=== PATIENT | male | born 1935 | race Caucasian/White ===

== ENCOUNTER 2018-08-21 07:34 | Day surgery (SDC) | payer MEDICARE, OTHER, SELFPAY ==
[2018-08-03 10:01] VITALS: BMI 25.0
[2018-08-21] VITALS (7 sets, daily range): BP systolic 118–146; BP diastolic 67–87; PULSE 55–70; RESP 12–18; TEMP 36.3–36.8; O2SAT 95–98; BMI 25.4
--- NOTE | 2018-08-21 | LES_PTH ---
PATIENT: MOHIT ALVAREZ LOC: [facility] [place] U#:[id number] AGE/SX: 82/M ROOM: RE08/21/[address]: Dr. Vitaliy Johnson MD : [id number] BED: DIS: 08/21/2018 SPEC #: [id number] RECD: 08/21/18 13:36 STATUS: TAMARA GARRICK #: [id number] JULIETA: 08/21/18 00:[address]: Vitaliy Johnson DEPT: SURGICAL PATHOLOGY RECD BY: Mike Morales ENTERED: 08/21/18 13:36 SP TYPE: Lesion OTHR DR: Dr. 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 Skin lesion of left church, biopsy: Mild actinic change, solar elastosis and cicatrix vessel associated reactive change and mild inflammation. No evidence of carcinoma. B. Skin lesion of right church, biopsy: Basal cell carcinoma, superficial, nodular. Solar elastosis and cicatrix. See comment. C. Skin of eyelid, biopsy: Actinic keratosis with associated parakeratosis, mildly inflamed. Solar elastosis. AM:kamilla 08/22/18 COMMENT B. The carcinoma appears to have been completely excised in the planes examined. MICROSCOPIC DESCRIPTION Slides are reviewed. GROSS DESCRIPTION A - Received in fixative is one container labeled with the patient's name and designated left church, suture at 12 o'clock. The specimen consists of a brie-shaped piece of cheung-white skin measuring 2 x 1.5 cm and up to 0.6 cm in thickness. The specimen is inked as follows: 12 to 3 o'clock - black, 3 to 6 o'clock - blue, 6 to 9 o'clock - green and 9 to 12 o'clock - yellow. The specimen is serially sectioned and submitted entirely in two cassettes. Cassette 1 contains the 3, 6, 9 and 12 o'clock tips. B - Received in fixative is one container labeled with the patient's name and designated right church, suture at 12 o'clock. The specimen consists of a brie-shaped piece of cheung-white skin measuring 2.2 x 1.5 cm and up to 0.3 cm in thickness. The specimen is inked as follows: 12 to 3 o'clock - black, 3 to 6 o'clock - blue, 6 to 9 o'clock - green and 9 to 12 o'clock - yellow. The specimen is serially sectioned and submitted entirely in two cassettes. Cassette 1 contains the 3, 6, 9 and 12 o'clock tips. C - Received in fixative is one container labeled with the patient's name and designated left eyelid, suture at 12 o'clock. The specimen consists of a piece of cheung-white skin measuring 1 x 0.5 x 0.1 cm. The specimen is inked as follows: 12 o'clock margin - black and 6 o'clock margin - blue. The specimen is submitted entirely in one cassette. It will be bisected at the time of embedding. / SJ:rg 08/21/18 TC:0 CPT: 05753 x3
[2018-08-21] MEDS: Mupirocin Ointment 22gm Tube 1 APPLIC (11:32)
--- NOTE | 2018-08-21 11:34 | PCM.IMDPSTOP ---
Immediate Post-Op Note Date of Procedure: 08/21/18 Primary Surgeon/Physician: Vitaliy Johnson MD clinical radiologist: None Pre-Operative Diagnosis: 1. 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 2. 1.7 cm basal cell carcinoma scar right orthodoxy. 3. 6 mm actinic keratosis left supramedial cheek/lower medial eyelid. Post-Operative Diagnosis: Same. Surgery/Procedure Performed:: 1. Excision 1.5 cm squamous cell carcinoma in situ scar left orthodoxy with rhomboid transposition skin flap reconstruction (8 cm2). 2. Excision 1.7 cm basal cell carcinoma scar right orthodoxy with rhomboid transposition skin flap reconstruction (8 cm2). 3. Excision 6 mm actinic keratosis left supramedial cheek/lower medial eyelid with medial and lateral rotation skin flaps reconstruction (3.5 cm2). Description of Surgical Findings:: 82 year old male presents for evaluation of right orthodoxy squamous cell carcinoma and left orthodoxy basal cell carcinoma. He initially had lesions on his right posterior shoulder, left supramedial cheek/lower medial eyelid, left orthodoxy, and right orthodoxy area shave biopsied at [facility] on 05/28/18. The left orthodoxy lesion showed a basal cell carcinoma. The right orthodoxy lesion showed a focal dermal mucinous stroma with a possible adjacent basal cell carcinoma. The right posterior shoulder lesion was an actinic keratosis. The left supramedial cheek/lower medial eyelid lesion was an actinic keratosis. He then went to his PCP who performed a full thickness excision of the right orthodoxy lesion and the left orthodoxy lesion on 07/09/18. Pathology showed the left orthodoxy lesion was a squamous cell carcinoma in situ that closely approximates peripheral margin. The right orthodoxy lesion was a basal cell carcinoma, nodular type, with the deep margin and peripheral margin involved. He comes in for evaluation for surgical options for treatment. Today the patient underwent excision 1.5 cm squamous cell carcinoma in situ scar left orthodoxy with rhomboid transposition skin flap reconstruction (8 cm2) and excision 1.7 cm basal cell carcinoma scar right orthodoxy with rhomboid transposition skin flap reconstruction (8 cm2) and excision 6 mm actinic keratosis left supramedial cheek/lower medial eyelid with medial and lateral rotation skin flaps reconstruction (3.5 cm2). Estimated Blood Loss: 20 ml. Specimen's removed: 1. 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 2. 1.7 cm basal cell carcinoma scar right orthodoxy. 3. 6 mm actinic keratosis left supramedial cheek/lower medial eyelid. Drains: None. Type of Anesthesia:: Local MAC - xylocaine with epinephrine and IV sedation. - Admit VTE Documentation VTE Present on Admission: No VTE Mechan Device Prophylaxis: SCD's VTE Pharm Prophylaxis ordered?: No
--- NOTE | 2018-08-21 11:35 | OP.PN_ITS ---
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 1.5 cm squamous cell carcinoma in situ scar left sabianism. 2. 1.7 cm basal cell carcinoma scar right sabianism. 3. 6 mm actinic keratosis left supramedial cheek/lower medial eyelid. Post-Operative Diagnosis: Same. Surgery/Procedure Performed:: 1. Excision 1.5 cm squamous cell carcinoma in situ scar left sabianism with rhomboid transposition skin flap reconstruction (8 cm2). 2. Excision 1.7 cm basal cell carcinoma scar right sabianism with rhomboid transposition skin flap reconstruction (8 cm2). 3. Excision 6 mm actinic keratosis left supramedial cheek/lower medial eyelid with medial and lateral rotation skin flaps reconstruction (3.5 cm2). Description of Surgical Findings:: 82 year old male presents for evaluation of right sabianism squamous cell carcinoma and left sabianism basal cell carcinoma. He initially had lesions on his right posterior shoulder, left supramedial cheek/lower medial eyelid, left sabianism, and right sabianism area shave biopsied at [facility] on 05/28/18. The left sabianism lesion showed a basal cell carcinoma. The right sabianism lesion showed a focal dermal mucinous stroma with a possible adjacent basal cell carcinoma. The right posterior shoulder lesion was an actinic keratosis. The left supramedial cheek/lower medial eyelid lesion was an actinic keratosis. He then went to his PCP who performed a full thickness excision of the right sabianism lesion and the left sabianism lesion on 07/09/18. Pathology showed the left sabianism lesion was a squamous cell carcinoma in situ that closely approximates peripheral margin. The right sabianism lesion was a basal cell carcinoma, nodular type, with the deep margin and peripheral margin involved. He comes in for evaluation for surgical options for treatment. Today the patient underwent excision 1.5 cm squamous cell carcinoma in situ scar left sabianism with rhomboid transposition skin flap reconstruction (8 cm2) and excision 1.7 cm basal cell carcinoma scar right sabianism with rhomboid transposition skin flap reconstruction (8 cm2) and excision 6 mm actinic kerato sis left supramedial cheek/lower medial eyelid with medial and lateral rotation skin flaps reconstruction (3.5 cm2). Estimated Blood Loss: 20 ml. Specimen's removed: 1. 1.5 cm squamous cell carcinoma in situ scar left sabianism. 2. 1.7 cm basal cell carcinoma scar right sabianism. 3. 6 mm actinic keratosis left supramedial cheek/lower medial eyelid. Drains: None. Type of Anesthesia:: Local MAC - xylocaine with epinephrine and IV sedation. - Admit VTE Documentation VTE Present on Admission: No VTE Mechan Device Prophylaxis: SCD's VTE Pharm Prophylaxis ordered?: No
--- NOTE | 2018-08-21 11:47 | PCM.DC ---
You will use the following diet at home:: No restrictions Discharge Activity: May not drive while taking narcotic pain medications., May Shower - in 2 days., - - keep head elevated. no heavy lifting. May shower in (days): 2 May resume sexual activity in: 10-14 days Ice area for (Minutes): 5 - as needed for facial swelling. Weight Bearing Status: Weight bearing as tolerated Lifting Restrictions: 10 lbs. Keep extremity elevated above heart level: - - elevate head. Call your doctor if your incision/area has: Continuous Slow Oozing, Sudden Increased Bleeding, Increased Pain/ Swelling, Increased Redness, Foul Smelling Discharge, Swelling at the incision site Call your doctor if you observe: Fever of 101 or Higher, Coldness, Increased Pain, Shortness of breath, Chest pain, Calf discomfort, Uncontrolled pain Suture Line Care: - - apply bactroban ointment to suture line daily. Cleanse incision/area with: - - may get incisions wet in the shower in two days. Allergies/Adverse Reactions: Allergies No Known Allergies Allergy (Unverified 08/17/18 14:22) Medications to take at Discharge carvedilol 12.5 mg tablet 12.5 mg PO DAILY tab 08/03/18 multivitamin tablet 1 tab PO DAILY 08/03/18 Clindamycin HCl [Cleocin HCl] 300 mg PO TID #12 cap 08/21/18 Lactobacillus Acidophilus/Fos [Acidophilus Probiotic Tablet] 1 ea PO BID #10 tab 08/21/18 Oxycodone HCl/Acetaminophen [Percocet 5/325] 1 tab PO 4X/DAY PRN PRN 5 Days #20 tab 08/21/18 The following prescriptions were given: Oxycodone HCl/Acetaminophen [Percocet 5/325] 1 tab PO 4X/DAY PRN PRN 5 Days #20 tab PRN Reason: Pain Lactobacillus Acidophilus/Fos [Acidophilus Probiotic Tablet] 1 ea PO BID #10 tab Clindamycin HCl [Cleocin HCl] 300 mg PO TID #12 cap Primary Care Physician: Zhen Mcgill [Primary Care Provider] - Test Results: Test results from this visit will be discussed in further detail at your follow-up appointment, if applicable. Please Follow Up With: Vitaliy Johnson MD When: one week. call [phone] for appt. Proposed Discharge Date: 08/21/18
--- NOTE | 2018-08-21 11:50 | DCINST_ITS ---
You will use the following diet at home:: No restrictions Discharge Activity: May not drive while taking narcotic pain medications., May Shower - in 2 days., - - keep head elevated. no heavy lifting. May shower in (days): 2 May resume sexual activity in: 10-14 days Ice area for (Minutes): 5 - as needed for facial swelling. Weight Bearing Status: Weight bearing as tolerated Lifting Restrictions: 10 lbs. Keep extremity elevated above heart level: - - elevate head. Call your doctor if your incision/area has: Continuous Slow Oozing, Sudden Increased Bleeding, Increased Pain/ Swelling, Increased Redness, Foul Smelling Discharge, Swelling at the incision site Call your doctor if you observe: Fever of 101 or Higher, Coldness, Increased Pain, Shortness of breath, Chest pain, Calf discomfort, Uncontrolled pain Suture Line Care: - - apply bactroban ointment to suture line daily. Cleanse incision/area with: - - may get incisions wet in the shower in two days. Allergies/Adverse Reactions: Allergies No Known Allergies Allergy (Unverified 08/17/18 14:22) Medications to take at Discharge carvedilol 12.5 mg tablet 12.5 mg PO DAILY tab 08/03/18 multivitamin tablet 1 tab PO DAILY 08/03/18 Clindamycin HCl [Cleocin HCl] 300 mg PO TID #12 cap 08/21/18 Lactobacillus Acidophilus/Fos [Acidophilus Probiotic Tablet] 1 ea PO BID #10 tab 08/21/18 Oxycodone HCl/Acetaminophen [Percocet 5/325] 1 tab PO 4X/DAY PRN PRN 5 Days #20 tab 08/21/18 The following prescriptions were given: Oxycodone HCl/Acetaminophen [Percocet 5/325] 1 tab PO 4X/DAY PRN PRN 5 Days #20 tab PRN Reason: Pain Lactobacillus Acidophilus/Fos [Acidophilus Probiotic Tablet] 1 ea PO BID #10 tab Clindamycin HCl [Cleocin HCl] 300 mg PO TID #12 cap Primary Care Physician: Zhen Mcgill [Primary Care Provider] - Test Results: Test results from this visit will be discussed in further detail at your follow- up appointment, if applicable. Please Follow Up With: Vitaliy Johnson MD When: one week. call [phone] for appt. Proposed Discharge Date: 08/21/18
--- NOTE | 2018-08-21 18:56 | PCM.OPRPT ---
Report of Operation Date of Procedure: 08/21/18 Pre-Operative Diagnosis: 1. 1.5 cm squamous cell carcinoma in situ scar left nondenominational. 2. 1.7 cm basal cell carcinoma scar right nondenominational. 3. 6 mm actinic keratosis left supramedial cheek/lower medial eyelid. Post-Operative Diagnosis: Same. Surgery/Procedure Performed:: 1. Excision 1.5 cm squamous cell carcinoma in situ scar left nondenominational with rhomboid transposition skin flap reconstruction (8 cm2). 2. Excision 1.7 cm basal cell carcinoma scar right nondenominational with rhomboid transposition skin flap reconstruction (8 cm2). 3. Excision 6 mm actinic keratosis left supramedial cheek/lower medial eyelid with medial and lateral rotation skin flaps reconstruction (3.5 cm2). Description of Surgical Findings:: 82 year old male presents for evaluation of right nondenominational squamous cell carcinoma and left nondenominational basal cell carcinoma. He initially had lesions on his right posterior shoulder, left supramedial cheek/lower medial eyelid, left nondenominational, and right nondenominational area shave biopsied at [facility] on 05/28/18. The left nondenominational lesion showed a basal cell carcinoma. The right nondenominational lesion showed a focal dermal mucinous stroma with a possible adjacent basal cell carcinoma. The right posterior shoulder lesion was an actinic keratosis. The left supramedial cheek/lower medial eyelid lesion was an actinic keratosis. He then went to his PCP who performed a full thickness excision of the right nondenominational lesion and the left nondenominational lesion on 07/09/18. Pathology showed the left nondenominational lesion was a squamous cell carcinoma in situ that closely approximates peripheral margin. The right nondenominational lesion was a basal cell carcinoma, nodular type, with the deep margin and peripheral margin involved. He comes in for evaluation for surgical options for treatment. Patient was informed of the risks and complications of the procedure including alternatives to surgery. These were discussed with the patient personally. Patient voices understanding and wishes to proceed. Some of the risks and complications were included in a form from the [employer]. 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 Specimen's removed: 1. 1.5 cm squamous cell carcinoma in situ scar left nondenominational. 2. 1.7 cm basal cell carcinoma scar right nondenominational. 3. 6 mm actinic keratosis left supramedial cheek/lower medial eyelid. Drains: None. Estimated Blood Loss (mL): 20 ml. Description of Procedure: Patient was taken to OR in supine position and was given IV sedation. The face and neck were prepped and draped in the usual fashion. SCD's were placed for DVT prophylaxis. Perioperative antibiotics were given intravenously. The lesions left nondenominational, right nondenominational, and left supramedial cheek/lower medial eyelid were infiltrated with xylocaine and epinephrine. After waiting 5 minutes for the anesthetic to take effect, I excised the squamous cell carcinoma in situ scar left nondenominational in a rhomboid fashion with a 5 mm margin in all directions down into the subcutaneous tissue thus making it a 2.5 cm excision. A suture was marked at 12 oclock position for pathology orientation. The lesion was sent to Pathology for analysis to rule out carcinoma at the margins. A rhomboid flap was marked adjacent to the defect and incision was made into the subcutaneous tissue. The rhomboid flap was elevated on a subcutaneous pedicle at the level of the underlying muscular fascia. The flap was easily transposed into the defect with minimal tension and minimal distortion. Hemostasis was obtained with electrocautery. The flap was transposed into the rhomboid defect and closed in a layered fashion with 5-0 Monocryl interrupted sutures for the deep dermis and subcutaneous tissue. The skin was approximated with 6-0 Prolene simple interrupted sutures. Antibiotic ointment was applied to the suture lines. The size of the defect and the size of the flap needed to close the defect was 8 cm2. Next, I excised the basal cell carcinoma scar right nondenominational in a rhomboid fashion with a 4 mm margin in all directions down into the subcutaneous tissue thus making it a 2.5 cm excision. A suture was marked at 12 oclock position for pathology orientation. The lesion was sent to Pathology for analysis to rule out carcinoma at the margins. A rhomboid flap was marked adjacent to the defect and incision was made into the subcutaneous tissue. The rhomboid flap was elevated on a subcutaneous pedicle at the level of the underlying muscular fascia. The flap was easily transposed into the defect with minimal tension and minimal distortion. Hemostasis was obtained with electrocautery. The flap was transposed into the rhomboid defect and closed in a layered fashion with 5-0 Monocryl interrupted sutures for the deep dermis and subcutaneous tissue. The skin was approximated with 6-0 Prolene simple interrupted sutures. Antibiotic ointment was applied to the suture lines. The size of the defect and the size of the flap needed to close the defect was 8 cm2. I then excised the actinic lesion left supramedial cheek/lower medial eyelid down into the subcutaneous tissue at the level of the orbicularis muscle. A suture was marked at 12 oclock position for pathology orientation. The lesion was sent to Pathology for analysis to rule out carcinoma. If carcinoma is present, then further excision will be done with skin grafting. There was some redundant lower eyelid skin present, so I felt I could close the defect with local skin flaps instead of skin grafting. Most of the defect was in the lower medial eyelid with a small sliver of defect in the supramedial cheek area. I extended the incision away from the defect laterally along the junction of the cheek skin and the lower eyelid skin. I made another oblique incision medially upward toward the medial [place]hal area. I elevated the skin flaps at the level of the underlying orbicularis muscle. I was able to take these medial and lateral skin flaps and rotate them and advance them into the defect for closure with minimal tension and minimal distortion. There was no tension on the lower eyelid. The wound was then closed in a layered fashion with 5-0 Monocryl interrupted sutures for the dermis. The skin was approximated with 5-0 fast absorbing interrupted sutures. Antibiotic ointment was applied to the suture lines. The size of the defect and the size of the flaps needed to close the defect was 3.5 cm2. Patient tolerated the procedure well and was sent to PACU in satisfactory condition. Patient will be sent home on antibiotics and pain medication. He will keep his head elevated during the initial postop period. Patient will followup in a week for a wound check and for discussion of the pathology report and for removal of the sutures. Grafts/Implants Used: None. - Complications None. - Admit VTE Documentation VTE Present on Admission: No VTE Mechan Device Prophylaxis: SCD's VTE Pharm Prophylaxis ordered?: No Code Visit Surgery Charges CPT - 22788 ICD-10 - L57.0, Z85.828 74306 D04.39 40667 C44.319
--- NOTE | 2018-08-22 21:57 | OP.PCM_ITS ---
Report of Operation Date of Procedure: 08/21/18 Pre-Operative Diagnosis: 1. 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 2. 1.7 cm basal cell carcinoma scar right anabaptism. 3. 6 mm actinic keratosis left supramedial cheek/lower medial eyelid. Post-Operative Diagnosis: Same. Surgery/Procedure Performed:: 1. Excision 1.5 cm squamous cell carcinoma in situ scar left anabaptism with rhomboid transposition skin flap reconstruction (8 cm2). 2. Excision 1.7 cm basal cell carcinoma scar right anabaptism with rhomboid transposition skin flap reconstruction (8 cm2). 3. Excision 6 mm actinic keratosis left supramedial cheek/lower medial eyelid with medial and lateral rotation skin flaps reconstruction (3.5 cm2). Description of Surgical Findings:: 82 year old male presents for evaluation of right anabaptism squamous cell carcinoma and left anabaptism basal cell carcinoma. He initially had lesions on his right posterior shoulder, left supramedial cheek/lower medial eyelid, left anabaptism, and right anabaptism area shave biopsied at [facility] on 05/28/18. The left anabaptism lesion showed a basal cell carcinoma. The right anabaptism lesion showed a focal dermal mucinous stroma with a possible adjacent basal cell carcinoma. The right posterior shoulder lesion was an actinic keratosis. The left supramedial cheek/lower medial eyelid lesion was an actinic keratosis. He then went to his PCP who performed a full thickness excision of the right anabaptism lesion and the left anabaptism lesion on 07/09/18. Pathology showed the left anabaptism lesion was a squamous cell carcinoma in situ that closely approximates peripheral margin. The right anabaptism lesion was a basal cell carcinoma, nodular type, with the deep margin and peripheral margin involved. He comes in for evaluation for surgical options for treatment. Patient was informed of the risks and complications of the procedure including alternatives to surgery. These were discussed with the patient personally. Patient voices understanding and wishes to proceed. Some of the risks and complications were included in a form from the [employer]. 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 Specimen's removed: 1. 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 2. 1.7 cm basal cell carcinoma scar right anabaptism. 3. 6 mm actinic keratosis left supramedial cheek/lower medial eyelid. Drains: None. Estimated Blood Loss (mL): 20 ml. Description of Procedure: Patient was taken to OR in supine position and was given IV sedation. The face and neck were prepped and draped in the usual fashion. SCD's were placed for DVT prophylaxis. Perioperative antibiotics were given intravenously. The lesions left anabaptism, right anabaptism, and left supramedial cheek/lower medial eyelid were infiltrated with xylocaine and epinephrine. After waiting 5 minutes for the anesthetic to take effect, I excised the squamous cell carcinoma in situ scar left anabaptism in a rhomboid fashion with a 5 mm margin in all directions down into the subcutaneous tissue thus making it a 2.5 cm excision. A suture was marked at 12 oclock position for pathology orientation. The lesion was sent to Pathology for analysis to rule out carcinoma at the margins. A rhomboid flap was marked adjacent to the defect and incision was made into the subcutaneous tissue. The rhomboid flap was elevated on a subcutaneous pedicle at the level of the underlying muscular fascia. The flap was easily transposed into the defect with minimal tension and minimal distortion. Hemostasis was obtained with electrocautery. The flap was transposed into the rhomboid defect and closed in a layered fashion with 5-0 Monocryl interrupted sutures for the deep dermis and subcutaneous tissue. The skin was approximated with 6-0 Prolene simple interrupted sutures. Antibiotic ointment was applied to the suture lines. The size of the defect and the size of the flap needed to close the defect was 8 cm2. Next, I excised the basal cell carcinoma scar right anabaptism in a rhomboid fashion with a 4 mm margin in all directions down into the subcutaneous tissue thus making it a 2.5 cm excision. A suture was marked at 12 oclock position for pathology orientation. The lesion was sent to Pathology for analysis to rule out carcinoma at the margins. A rhomboid flap was marked adjacent to the defect and incision was made into the subcutaneous tissue. The rhomboid flap was elevated on a subcutaneous pedicle at the level of the underlying muscular fascia. The flap was easily transposed into the defect with minimal tension and minimal distortion. Hemostasis was obtained with electrocautery. The flap was transposed into the rhomboid defect and closed in a layered fashion with 5-0 Monocryl interrupted sutures for the deep dermis and subcutaneous tissue. The skin was approximated with 6-0 Prolene simple interrupted sutures. Antibiotic ointment was applied to the suture lines. The size of the defect and the size of the flap needed to close the defect was 8 cm2. I then excised the actinic lesion left supramedial cheek/lower medial eyelid down into the subcutaneous tissue at the level of the orbicularis muscle. A suture was marked at 12 oclock position for pathology orientation. The lesion was sent to Pathology for analysis to rule out carcinoma. If carcinoma is present, then further excision will be done with skin grafting. There was some redundant lower eyelid skin present, so I felt I could close the defect with local skin flaps instead of skin grafting. Most of the defect was in the lower medial eyelid with a small sliver of defect in the supramedial cheek area. I extended the incision away from the defect laterally along the junction of the cheek skin and the lower eyelid skin. I made another oblique incision medially upward toward the medial [place] area. I elevated the skin flaps at the level of the underlying orbicularis muscle. I was able to take these medial and lateral skin flaps and rotate them and advance them into the defect for closure with minimal tension and minimal distortion. There was no tension on the lower eyelid. The wound was then closed in a layered fashion with 5-0 Monocryl interrupted sutures for the dermis. The skin was approximated with 5-0 fast absorbing interrupted sutures. Antibiotic ointment was applied to the suture lines. The size of the defect and the size of the flaps needed to close the defect was 3.5 cm2. Patient tolerated the procedure well and was sent to PACU in satisfactory condition. Patient will be sent home on antibiotics and pain medication. He will keep his head elevated during the initial postop period. Patient will followup in a week for a wound check and for discussion of the pathology report and for removal of the sutures. Grafts/Implants Used: None. - Complications None. - Admit VTE Documentation VTE Present on Admission: No VTE Mechan Device Prophylaxis: SCD's VTE Pharm Prophylaxis ordered?: No Code Visit Surgery Charges CPT - 90765 ICD-10 - L57.0, Z85.828 87297 D04.39 25123 C44.319
== END 2018-08-21 13:35 | disposition home or self-care (01) ==
LOC: SDC 07:36 → AC 07:38
PROVIDERS: Family Provider Family Medicine; PCP Family Medicine; Referring Provider Surgery; Visit Provider Surgery
PROC: (CPT 14040; principal; 2018-08-21 09:10)
DX: C44.319 Basal cell carcinoma of skin of other parts of face (principal); L57.0 Actinic keratosis; L57.8 Other skin changes due to chronic exposure to nonionizing radiation; R23.4 Changes in skin texture; W89.9XXA Exposure to unspecified man-made visible and ultraviolet light, initial encounter; Y93.9 Activity, unspecified; Y92.9 Unspecified place or not applicable; Y99.9 Unspecified external cause status; H02.35 Blepharochalasis left lower eyelid; I10 Essential (primary) hypertension; F17.200 Nicotine dependence, unspecified, uncomplicated; Z79.82 Long term (current) use of aspirin; Z79.899 Other long term (current) drug therapy; Z85.828 Personal history of other malignant neoplasm of skin
CPT/HCPCS: 00300; 14040 ×2; 14060; 88305; J7120; J2405